=== PATIENT | female | born 1955 | race Caucasian/White ===

== ENCOUNTER → 2023-07-27 08:19 | Outpatient (REF) | payer MEDICARE, SELFPAY | LOC: RCS 08:19 | PROVIDERS: ATTENDING PHYSICIAN Internal Medicine Cardiovascular Disease; FAMILY PHYSICIAN Student in an Organized Health Care Education/Training Program | DX: R42 Dizziness and giddiness (principal); R55 Syncope and collapse | CPT/HCPCS: 93306 ==

== ENCOUNTER → 2023-10-29 10:18 | Outpatient (REF) | payer MEDICARE, SELFPAY ==
[2023-10-29 11:14] LABS: % Basophils 1.2 % (0-2); % Eosinophils 1.5 % (0-6); % Immature Granulocytes 0.2 % (0-0.5); % Lymphocytes 46.4 % (20.5-51.1); % Neutrophils 42.7 % (42.2-75.2); Absolute Basophils 0.1 10^3/uL (0-0.2); Absolute Eosinophils 0.1 10^3/uL (0-0.7); Absolute Lymphocytes 2.8 10^3/uL (1.2-3.4); Absolute Monocytes 0.5 10^3/uL (0.1-0.6); Absolute Neutrophils 2.6 10^3/uL (1.4-6.5); Hematocrit 38.4 % (37.0-47.0); Hemoglobin 13.2 g/dL (12.0-16.0); Mean Corp Hgb Conc. 34.4 g/dL (33.0-37.0); Mean Corpuscular Hgb 31.4 pg (27.0-31.0); Mean Corpuscular Volume 91.2 fL (81.0-99.0); Mean Platelet Volume 10.2 fL (7.4-10.4); Nucleated Red Blood Cells % 0 %; Platelet Count 251 10^3/uL (130-400); Red Blood Cell Count 4.21 10^6/uL (4.20-5.40); Red Cell Dist. Width 12.1 % (11.5-14.5)
[2023-10-29 11:49] LABS: Erythrocyte Sed Rate 24 mm/hour (0-20)
[2023-10-29 13:11] LABS: ALT (SGPT) 17 U/L (0-35); AST (SGOT) 23 U/L (14-36); Albumin 4.1 g/dl (3.5-5.0); Alkaline Phosphatase 76 U/L (38-126); Blood Urea Nitrogen 20 mg/dl (7-17); Calcium 9.8 mg/dl (8.4-10.2); Carbon Dioxide 29 mmol/L (22-30); Chloride 103 mmol/L (98-107); Glucose 86 mg/dl (70-99); Potassium 4.4 mmol/L (3.5-5.1); Sodium 135 mmol/L (135-145); Total Bilirubin 0.4 mg/dl (0.2-1.3); eGFR > 60.00
[2023-10-29 13:13] LABS: C-Reactive Protein < 5.00 mg/L (0.0-10.00)
== END ==
LOC: REG 10:18
PROVIDERS: ATTENDING PHYSICIAN Internal Medicine Rheumatology; FAMILY PHYSICIAN Student in an Organized Health Care Education/Training Program
DX: L40.50 Arthropathic psoriasis, unspecified (principal); M81.0 Age-related osteoporosis without current pathological fracture; Z51.81 Encounter for therapeutic drug level monitoring
CPT/HCPCS: 36415; 80053; 85025; 85652; 86140

== ENCOUNTER → 2024-01-31 06:28 | Day surgery (SDC) | payer MEDICARE, SELFPAY | LOC: GI 06:28 | PROVIDERS: ATTENDING PHYSICIAN Specialist | DX: Z12.11 Encounter for screening for malignant neoplasm of colon (principal); K57.30 Diverticulosis of large intestine without perforation or abscess without bleeding | CPT/HCPCS: G0121 ==

== ENCOUNTER → 2024-02-29 15:30 | Outpatient (REF) | payer MEDICARE, SELFPAY | LOC: PAVMRI 15:30 | PROVIDERS: ATTENDING PHYSICIAN Orthopaedic Surgery; FAMILY PHYSICIAN Emergency Medicine | DX: M25.561 Pain in right knee (principal) | CPT/HCPCS: 73721 ==

== ENCOUNTER → 2024-03-12 13:37 | Outpatient (REF) | payer MEDICARE, SELFPAY ==
[2024-03-12 14:28] LABS: % Basophils 0.5 % (0-2); % Eosinophils 1.2 % (0-6); % Immature Granulocytes 0.3 % (0-0.5); % Lymphocytes 39.4 % (20.5-51.1); % Monocytes 7.1 % (1.7-9.3); % Neutrophils 51.5 % (42.2-75.2); Absolute Eosinophils 0.1 10^3/uL (0-0.7); Absolute Monocytes 0.5 10^3/uL (0.1-0.6); Absolute Neutrophils 3.9 10^3/uL (1.4-6.5); Hematocrit 40.6 % (37.0-47.0); Hemoglobin 13.7 g/dL (12.0-16.0); Mean Corp Hgb Conc. 33.7 g/dL (33.0-37.0); Mean Corpuscular Hgb 30.8 pg (27.0-31.0); Mean Corpuscular Volume 91.2 fL (81.0-99.0); Mean Platelet Volume 9.7 fL (7.4-10.4); Nucleated Red Blood Cells % 0 %; Platelet Count 305 10^3/uL (130-400); Red Blood Cell Count 4.45 10^6/uL (4.20-5.40); Red Cell Dist. Width 12.6 % (11.5-14.5); White Blood Cell Count 7.6 10^3/uL (4.8-10.8)
[2024-03-12 15:02] LABS: Blood Urea Nitrogen 17 mg/dl (7-17); Calcium 10.2 mg/dl (8.4-10.2); Carbon Dioxide 27 mmol/L (22-30); Chloride 100 mmol/L (98-107); Glucose 106 mg/dl (70-99); Potassium 4.7 mmol/L (3.5-5.1); Sodium 139 mmol/L (135-145); eGFR > 60.00
== END ==
LOC: RCS 13:37
PROVIDERS: ATTENDING PHYSICIAN Orthopaedic Surgery; FAMILY PHYSICIAN Emergency Medicine
DX: Z01.818 Encounter for other preprocedural examination (principal)
CPT/HCPCS: 36415; 80048; 85025; 93005

== ENCOUNTER 2024-04-25 14:57 | Outpatient (RCR) | payer MEDICARE, SELFPAY | END 2024-04-25 23:59 | disposition home or self-care (01) | LOC: RPT 14:57 | PROVIDERS: ATTENDING PHYSICIAN Orthopaedic Surgery; FAMILY PHYSICIAN Emergency Medicine | DX: Z98.890 Other specified postprocedural states (principal); Z73.6 Limitation of activities due to disability (principal) | CPT/HCPCS: 97110; 97162 ==

== ENCOUNTER → 2024-05-03 07:40 | Outpatient (REF) | payer MEDICARE, SELFPAY ==
[2024-05-03 09:41] LABS: % Basophils 1.4 % (0-2); % Eosinophils 1.9 % (0-6); % Immature Granulocytes 0.2 % (0-0.5); % Lymphocytes 45.8 % (20.5-51.1); % Monocytes 7.3 % (1.7-9.3); % Neutrophils 43.4 % (42.2-75.2); Absolute Basophils 0.1 10^3/uL (0-0.2); Absolute Eosinophils 0.1 10^3/uL (0-0.7); Absolute Lymphocytes 2.6 10^3/uL (1.2-3.4); Absolute Monocytes 0.4 10^3/uL (0.1-0.6); Absolute Neutrophils 2.5 10^3/uL (1.4-6.5); Hematocrit 38.8 % (37.0-47.0); Hemoglobin 12.9 g/dL (12.0-16.0); Mean Corp Hgb Conc. 33.2 g/dL (33.0-37.0); Mean Corpuscular Hgb 31.1 pg (27.0-31.0); Mean Corpuscular Volume 93.5 fL (81.0-99.0); Mean Platelet Volume 10.5 fL (7.4-10.4); Nucleated Red Blood Cells % 0 %; Platelet Count 263 10^3/uL (130-400); Red Blood Cell Count 4.15 10^6/uL (4.20-5.40); Red Cell Dist. Width 12.3 % (11.5-14.5); White Blood Cell Count 5.7 10^3/uL (4.8-10.8)
[2024-05-03 10:15] LABS: ALT (SGPT) 19 U/L (0-35); AST (SGOT) 25 U/L (14-36); Albumin 4.2 g/dl (3.5-5.0); Alkaline Phosphatase 72 U/L (38-126); Blood Urea Nitrogen 27 mg/dl (7-17); Carbon Dioxide 28 mmol/L (22-30); Chloride 101 mmol/L (98-107); Glucose 93 mg/dl (70-99); HDL Cholesterol 77 mg/dl; LDL Cholesterol, Calculated 125 mg/dl; Potassium 5.2 mmol/L (3.5-5.1); Sodium 140 mmol/L (135-145); Total Bilirubin 0.4 mg/dl (0.2-1.3); Total Cholesterol 215 mg/dl (50-199); Triglyceride 65 mg/dl (10-149); Very Low Density Lipoprotein 13 mg/dl (0-30); eGFR > 60.00
[2024-05-03 10:18] LABS: Urine Albumin Negative (Neg - Trace); Urine Bilirubin Negative (Negative); Urine Character Clear (Clear); Urine Color Yellow; Urine Glucose Negative (Negative); Urine Ketone Negative (Negative); Urine Leukocyte Negative (Negative); Urine Nitrite Negative (Negative); Urine Occult Blood Negative (Negative); Urine Urobilinogen Negative (Neg - 1+)
[2024-05-03 10:27] LABS: Vitamin D, 25-OH*** 46.4 ng/mL (30-80)
[2024-05-03 10:41] LABS: TSH 1.14 uIU/ml (0.47-4.68)
[2024-05-03 10:59] LABS: Glycohemoglobin (HgbA1c) 5.5 % (4.0-5.6)
== END ==
LOC: REG 07:40
PROVIDERS: ATTENDING PHYSICIAN Emergency Medicine
DX: E78.5 Hyperlipidemia, unspecified (principal); R73.03 Prediabetes; E55.9 Vitamin D deficiency, unspecified; Z13.29 Encounter for screening for other suspected endocrine disorder; Z13.89 Encounter for screening for other disorder
CPT/HCPCS: 36415; 80053; 80061; 81003; 82306; 83036; 84443; 85025

== ENCOUNTER → 2024-05-08 11:54 | Outpatient (REF) | payer MEDICARE, SELFPAY | LOC: WDC 11:54 | PROVIDERS: ATTENDING PHYSICIAN Obstetrics & Gynecology Gynecology; FAMILY PHYSICIAN Emergency Medicine | DX: Z12.31 Encounter for screening mammogram for malignant neoplasm of breast (principal) | CPT/HCPCS: 77063; 77067 ==

== ENCOUNTER 2024-05-22 15:22 | Outpatient (RCR) | payer MEDICARE, SELFPAY | END 2024-05-22 23:59 | disposition home or self-care (01) | LOC: RPT 15:22 | PROVIDERS: ATTENDING PHYSICIAN Orthopaedic Surgery; FAMILY PHYSICIAN Emergency Medicine | DX: Z47.89 Encounter for other orthopedic aftercare (principal); Z73.6 Limitation of activities due to disability; M25.561 Pain in right knee; R26.89 Other abnormalities of gait and mobility; M62.81 Muscle weakness (generalized) | CPT/HCPCS: 97110 ==

== ENCOUNTER 2024-06-12 15:10 | Outpatient (RCR) | payer MEDICARE, SELFPAY | END 2024-06-12 23:59 | disposition home or self-care (01) | LOC: RPT 15:10 | PROVIDERS: ATTENDING PHYSICIAN Orthopaedic Surgery; FAMILY PHYSICIAN Emergency Medicine | DX: Z47.89 Encounter for other orthopedic aftercare (principal); Z73.6 Limitation of activities due to disability; M25.561 Pain in right knee; R26.2 Difficulty in walking, not elsewhere classified; R26.89 Other abnormalities of gait and mobility; M62.81 Muscle weakness (generalized) | CPT/HCPCS: 97110 ==

== ENCOUNTER → 2024-07-06 11:28 | Outpatient (REF) | payer MEDICARE, SELFPAY ==
[2024-07-06 12:08] LABS: % Basophils 0.3 % (0-2); % Eosinophils 0.9 % (0-6); % Immature Granulocytes 0.4 % (0-0.5); % Lymphocytes 33.1 % (20.5-51.1); % Monocytes 6.1 % (1.7-9.3); % Neutrophils 59.2 % (42.2-75.2); Absolute Eosinophils 0.1 10^3/uL (0-0.7); Absolute Lymphocytes 2.3 10^3/uL (1.2-3.4); Absolute Monocytes 0.4 10^3/uL (0.1-0.6); Absolute Neutrophils 4.1 10^3/uL (1.4-6.5); Hemoglobin 14.4 g/dL (12.0-16.0); Mean Corp Hgb Conc. 33.5 g/dL (33.0-37.0); Mean Corpuscular Hgb 31.5 pg (27.0-31.0); Mean Corpuscular Volume 94.1 fL (81.0-99.0); Mean Platelet Volume 9.5 fL (7.4-10.4); Nucleated Red Blood Cells % 0 %; Platelet Count 260 10^3/uL (130-400); Red Blood Cell Count 4.57 10^6/uL (4.20-5.40); Red Cell Dist. Width 11.4 % (11.5-14.5); White Blood Cell Count 6.9 10^3/uL (4.8-10.8)
[2024-07-06 12:20] LABS: Erythrocyte Sed Rate 41 mm/hour (0-20)
[2024-07-06 12:46] LABS: ALT (SGPT) 55 U/L (0-35); AST (SGOT) 52 U/L (14-36); Albumin 4.6 g/dl (3.5-5.0); Alkaline Phosphatase 91 U/L (38-126); Blood Urea Nitrogen 22 mg/dl (7-17); Calcium 10.3 mg/dl (8.4-10.2); Carbon Dioxide 27 mmol/L (22-30); Chloride 97 mmol/L (98-107); Glucose 106 mg/dl (70-99); Potassium 4.9 mmol/L (3.5-5.1); Sodium 137 mmol/L (135-145); Total Bilirubin 0.4 mg/dl (0.2-1.3); Total Protein 7.8 g/dl (6.3-8.2); eGFR > 60.00
== END ==
LOC: REG 11:28
PROVIDERS: ATTENDING PHYSICIAN Internal Medicine Rheumatology; FAMILY PHYSICIAN Family Medicine
DX: L40.50 Arthropathic psoriasis, unspecified (principal); M06.4 Inflammatory polyarthropathy; M16.0 Bilateral primary osteoarthritis of hip; M81.0 Age-related osteoporosis without current pathological fracture; Z51.81 Encounter for therapeutic drug level monitoring; Z79.1 Long term (current) use of non-steroidal anti-inflammatories (NSAID)
CPT/HCPCS: 36415; 80053; 85025; 85652; 86140

== ENCOUNTER → 2024-09-03 09:16 | Outpatient (REF) | payer MEDICARE, SELFPAY ==
[2024-09-03 11:15] LABS: ALT (SGPT) 19 U/L (0-35); AST (SGOT) 22 U/L (14-36); Albumin 4.3 g/dl (3.5-5.0); Alkaline Phosphatase 65 U/L (38-126); Blood Urea Nitrogen 10 mg/dl (7-17); Calcium 10.3 mg/dl (8.4-10.2); Carbon Dioxide 32 mmol/L (22-30); Chloride 100 mmol/L (98-107); Glucose 96 mg/dl (70-99); Iron 110 ug/dl (37-170); Potassium 5.2 mmol/L (3.5-5.1); Sodium 137 mmol/L (135-145); Total Bilirubin 0.7 mg/dl (0.2-1.3); eGFR > 60.00
[2024-09-03 11:53] LABS: Ferritin 72.3 ng/ml (11.1-264.0)
== END ==
LOC: REG 09:16
PROVIDERS: ATTENDING PHYSICIAN Emergency Medicine
DX: Z09 Encounter for follow-up examination after completed treatment for conditions other than malignant neoplasm (principal); K57.32 Diverticulitis of large intestine without perforation or abscess without bleeding; E61.1 Iron deficiency
CPT/HCPCS: 36415; 80053; 82728; 83540

== ENCOUNTER → 2024-09-25 17:02 | Outpatient (REF) | payer MEDICARE, SELFPAY | LOC: RAD 17:02 | PROVIDERS: ATTENDING PHYSICIAN Emergency Medicine | DX: R10.30 Lower abdominal pain, unspecified (principal) | CPT/HCPCS: 74177; Q9967 ==

== ENCOUNTER → 2024-10-19 08:20 | Outpatient (REF) | payer MEDICARE, SELFPAY ==
[2024-10-19 09:11] LABS: % Basophils 1.2 % (0-2); % Eosinophils 2.6 % (0-6); % Immature Granulocytes 0.4 % (0-0.5); % Lymphocytes 47.6 % (20.5-51.1); % Monocytes 8.5 % (1.7-9.3); % Neutrophils 39.7 % (42.2-75.2); Absolute Basophils 0.1 10^3/uL (0-0.2); Absolute Eosinophils 0.1 10^3/uL (0-0.7); Absolute Lymphocytes 2.4 10^3/uL (1.2-3.4); Absolute Monocytes 0.4 10^3/uL (0.1-0.6); Hematocrit 39.6 % (37.0-47.0); Hemoglobin 13.5 g/dL (12.0-16.0); Mean Corp Hgb Conc. 34.1 g/dL (33.0-37.0); Mean Corpuscular Hgb 31.9 pg (27.0-31.0); Mean Corpuscular Volume 93.6 fL (81.0-99.0); Mean Platelet Volume 9.9 fL (7.4-10.4); Nucleated Red Blood Cells % 0 %; Platelet Count 248 10^3/uL (130-400); Red Blood Cell Count 4.23 10^6/uL (4.20-5.40); Red Cell Dist. Width 12.4 % (11.5-14.5)
[2024-10-19 09:33] LABS: ALT (SGPT) 16 U/L (0-35); AST (SGOT) 23 U/L (14-36); Albumin 4.1 g/dl (3.5-5.0); Alkaline Phosphatase 56 U/L (38-126); Blood Urea Nitrogen 19 mg/dl (7-17); Calcium 10.4 mg/dl (8.4-10.2); Carbon Dioxide 30 mmol/L (22-30); Chloride 105 mmol/L (98-107); Glucose 97 mg/dl (70-99); Potassium 4.9 mmol/L (3.5-5.1); Sodium 142 mmol/L (135-145); Total Bilirubin 0.6 mg/dl (0.2-1.3); eGFR > 60.00
[2024-10-19 09:45] LABS: C-Reactive Protein < 5.00 mg/L (0.0-10.00)
[2024-10-19 10:10] LABS: Erythrocyte Sed Rate 26 mm/hour (0-20)
[2024-10-20 09:50] LABS: Intact PTH 43.2 pg/ml (13.6-85.8)
== END ==
LOC: REG 08:20
PROVIDERS: ATTENDING PHYSICIAN Internal Medicine Rheumatology; FAMILY PHYSICIAN Emergency Medicine
DX: L40.50 Arthropathic psoriasis, unspecified (principal); M18.0 Bilateral primary osteoarthritis of first carpometacarpal joints; M81.0 Age-related osteoporosis without current pathological fracture; Z51.81 Encounter for therapeutic drug level monitoring; E83.52 Hypercalcemia
CPT/HCPCS: 36415; 80053; 83970; 85025; 85652; 86140

== ENCOUNTER → 2024-10-25 07:56 | Outpatient (REF) | payer MEDICARE, SELFPAY | LOC: RAD 07:56 | PROVIDERS: ATTENDING PHYSICIAN Internal Medicine Rheumatology; FAMILY PHYSICIAN Emergency Medicine | DX: M85.80 Other specified disorders of bone density and structure, unspecified site (principal); Z78.0 Asymptomatic menopausal state | CPT/HCPCS: 77080 ==

== ENCOUNTER → 2024-11-08 08:05 | Outpatient (REF) | payer MEDICARE, SELFPAY ==
[2024-11-08 08:38] LABS: Ionized Calcium 1.26 mMOL/L (1.15-1.33)
[2024-11-08 09:50] LABS: ALT (SGPT) 16 U/L (0-35); AST (SGOT) 21 U/L (14-36); Albumin 4.1 g/dl (3.5-5.0); Alkaline Phosphatase 56 U/L (38-126); Blood Urea Nitrogen 15 mg/dl (7-17); Calcium 10.1 mg/dl (8.4-10.2); Carbon Dioxide 30 mmol/L (22-30); Chloride 106 mmol/L (98-107); Glucose 98 mg/dl (70-99); Potassium 5.2 mmol/L (3.5-5.1); Sodium 142 mmol/L (135-145); Total Bilirubin 0.4 mg/dl (0.2-1.3); Total Protein 7.5 g/dl (6.3-8.2); eGFR > 60.00
[2024-11-08 10:14] LABS: TSH Reflex To Free T4 1.07 uIU/ml (0.47-4.68)
[2024-11-10 12:09] LABS: Intact PTH 45.7 pg/ml (13.6-85.8)
== END ==
LOC: REG 08:05
PROVIDERS: ATTENDING PHYSICIAN Internal Medicine Endocrinology, Diabetes & Metabolism; FAMILY PHYSICIAN Emergency Medicine
DX: E04.2 Nontoxic multinodular goiter (principal); M81.0 Age-related osteoporosis without current pathological fracture
CPT/HCPCS: 36415; 80053; 82330; 83970; 84443

== ENCOUNTER → 2025-01-02 08:06 | Outpatient (REF) | payer MEDICARE, SELFPAY ==
[2025-01-02 09:12] LABS: Hematocrit 38.5 % (37.0-47.0); Hemoglobin 12.9 g/dL (12.0-16.0); Mean Corp Hgb Conc. 33.5 g/dL (33.0-37.0); Mean Corpuscular Volume 92.1 fL (81.0-99.0); Platelet Count 252 10^3/uL (130-400); Red Cell Dist. Width 12.0 % (11.5-14.5)
[2025-01-02 10:00] LABS: Blood Urea Nitrogen 17 mg/dl (7-17); Calcium 9.4 mg/dl (8.4-10.2); Carbon Dioxide 23 mmol/L (22-30); Chloride 108 mmol/L (98-107); Glucose 92 mg/dl (70-99); Nucleated Red Blood Cells % 0 %; Potassium 4.7 mmol/L (3.5-5.1); Sodium 139 mmol/L (135-145); eGFR > 60.00
== END ==
LOC: RCS 08:06
PROVIDERS: ATTENDING PHYSICIAN Orthopaedic Surgery; FAMILY PHYSICIAN Emergency Medicine; REFERRING PHYSICIAN Internal Medicine Rheumatology
DX: Z01.818 Encounter for other preprocedural examination (principal)
CPT/HCPCS: 36415; 80048; 85025; 93005

== ENCOUNTER → 2025-02-05 08:39 | Outpatient (REF) | payer MEDICARE, SELFPAY | LOC: RAD 08:39 | PROVIDERS: ATTENDING PHYSICIAN Obstetrics & Gynecology Gynecology; FAMILY PHYSICIAN Emergency Medicine | DX: N95.0 Postmenopausal bleeding (principal) | CPT/HCPCS: 76830; 76856 ==

== ENCOUNTER → 2025-03-21 07:35 | Outpatient (REF) | payer MEDICARE, SELFPAY ==
[2025-03-21 08:37] LABS: Hematocrit 41.2 % (37.0-47.0); Hemoglobin 14.0 g/dL (12.0-16.0); Mean Corp Hgb Conc. 34.0 g/dL (33.0-37.0); Mean Corpuscular Volume 93.4 fL (81.0-99.0); Platelet Count 269 10^3/uL (130-400); Red Cell Dist. Width 12.3 % (11.5-14.5)
[2025-03-21 08:40] LABS: ALT (SGPT) 18 U/L (0-35); AST (SGOT) 24 U/L (14-36); Albumin 4.3 g/dl (3.5-5.0); Alkaline Phosphatase 50 U/L (38-126); Blood Urea Nitrogen 17 mg/dl (7-17); Calcium 9.8 mg/dl (8.4-10.2); Carbon Dioxide 28 mmol/L (22-30); Chloride 105 mmol/L (98-107); Glucose 95 mg/dl (70-99); Potassium 4.7 mmol/L (3.5-5.1); Sodium 138 mmol/L (135-145); Total Protein 7.3 g/dl (6.3-8.2); eGFR > 60.00
[2025-03-21 08:45] LABS: C-Reactive Protein < 5.00 mg/L (0.0-10.00)
[2025-03-21 09:02] LABS: Vitamin D, 25-OH*** 56.1 ng/mL (30-80)
[2025-03-21 09:15] LABS: Nucleated Red Blood Cells % 0 %
== END ==
LOC: REG 07:35
PROVIDERS: ATTENDING PHYSICIAN Internal Medicine Rheumatology; FAMILY PHYSICIAN Emergency Medicine
DX: E55.9 Vitamin D deficiency, unspecified (principal); L40.50 Arthropathic psoriasis, unspecified; M18.0 Bilateral primary osteoarthritis of first carpometacarpal joints; M25.561 Pain in right knee; M81.0 Age-related osteoporosis without current pathological fracture; Z51.81 Encounter for therapeutic drug level monitoring
CPT/HCPCS: 36415; 80053; 82306; 85025; 85652; 86140

== ENCOUNTER → 2025-05-13 12:20 | Outpatient (REF) | payer MEDICARE, SELFPAY | LOC: WDC 12:20 | PROVIDERS: ATTENDING PHYSICIAN Nurse Practitioner Family | DX: Z12.31 Encounter for screening mammogram for malignant neoplasm of breast (principal) | CPT/HCPCS: 77063; 77067 ==

== ENCOUNTER → 2025-06-12 09:24 | Outpatient (REF) | payer MEDICARE, SELFPAY ==
[2025-06-12 10:07] LABS: Hematocrit 39.2 % (37.0-47.0); Hemoglobin 13.2 g/dL (12.0-16.0); Mean Corp Hgb Conc. 33.7 g/dL (33.0-37.0); Mean Corpuscular Volume 91.6 fL (81.0-99.0); Platelet Count 256 10^3/uL (130-400); Red Cell Dist. Width 11.9 % (11.5-14.5)
[2025-06-12 10:44] LABS: Nucleated Red Blood Cells % 0 %
[2025-06-12 11:22] LABS: ALT (SGPT) 18 U/L (0-35); AST (SGOT) 24 U/L (14-36); Albumin 4.6 g/dl (3.5-5.0); Alkaline Phosphatase 56 U/L (38-126); Blood Urea Nitrogen 16 mg/dl (7-17); Calcium 9.7 mg/dl (8.4-10.2); Carbon Dioxide 26 mmol/L (22-30); Chloride 104 mmol/L (98-107); Glucose 93 mg/dl (70-99); HDL Cholesterol 67 mg/dl; Potassium 4.3 mmol/L (3.5-5.1); Sodium 137 mmol/L (135-145); Total Protein 7.6 g/dl (6.3-8.2); Very Low Density Lipoprotein 20 mg/dl (0-30); eGFR > 60.00
[2025-06-12 11:23] LABS: LDL Cholesterol, Calculated 127 mg/dl
[2025-06-12 11:59] LABS: Glycohemoglobin (HgbA1c) 5.7 % (4.0-5.9)
== END ==
LOC: REG 09:24
PROVIDERS: ATTENDING PHYSICIAN Nurse Practitioner Family; REFERRING PHYSICIAN Internal Medicine Rheumatology
DX: R73.03 Prediabetes (principal); E04.1 Nontoxic single thyroid nodule; E78.5 Hyperlipidemia, unspecified
CPT/HCPCS: 36415; 80053; 80061; 83036; 84443; 85025